=== PATIENT | female | born 1960 | race Caucasian/White ===

== ENCOUNTER → 2018-05-25 14:22 | Outpatient (CLI) | payer MEDICARE, SELFPAY ==
--- NOTE | 2018-05-25 | DI.MG.S_ITS ---
BILATERAL DIGITAL SCREENING MAMMOGRAM 3D/2D WITH CAD: 05/25/2018 CLINICAL: Routine screening. Comparison is made to exams dated: 05/02/2017 mammogram, 04/28/2016 mammogram, and 12/10/2014 mammogram - [facility]. There are scattered fibroglandular elements in both breasts. Current study was also evaluated with a Computer Aided Detection (CAD) system. No significant masses, calcifications, or other findings are seen in either breast. There has been no significant interval change. IMPRESSION: NEGATIVE There is no mammographic evidence of malignancy. A 1 year screening mammogram is recommended. This exam was interpreted at Station ID: [id number]. NOTE: For mammograms, a report in lay terms will be sent to the patient. Approximately 15% of breast malignancies will not be visualized mammographically. In the management of a palpable breast mass, a negative mammogram must not discourage biopsy of a clinically suspicious lesion. Electronically Signed By: Bartolo cooper/key:05/28/2018 20:19:05 letter sent: Normal Exam ACR BI-RADS Category 1: Negative [id number]
--- NOTE | 2018-05-25 | DI.RAD.S_ITS ---
PROCEDURE: XR LUMBAR SPINE 2-3V INDICATIONS: LOW BACK PAIN TECHNIQUE: 3 views of the lumbar spine were acquired. COMPARISON: MR, LUMBAR SPINE W/O CONTRAST, 11/14/2007, 12:59. FINDINGS: Bones: 5 [id number] vertebrae are present. There is normal bony alignment. No vertebral body compression fractures. No suspicious bony lesions. Multilevel disc degeneration, most notably in moderate at the L5-S1 level. Mild L4-L5 and L5-S1 facet joint arthropathy. Soft tissues: Overlying bowel gas pattern is normal. No suspicious soft tissue calcifications. Cholecystectomy clips. IMPRESSION: Degenerative disc and facet disease, most notably at the L5-S1 level. Dictated by: Latrell RICHEY Interpreted: Mk Thapa MD on 05/25/2018 at 14:43 Approved by: Mk Thapa M.D. on 05/25/2018 at 14:52
== END ==
PROVIDERS: Family Provider Family Medicine; PCP Family Medicine; Visit Provider Family Medicine
DX: Z12.31 Encounter for screening mammogram for malignant neoplasm of breast (principal); M54.5 Low back pain; M51.36 Other intervertebral disc degeneration, lumbar region; M51.37 Other intervertebral disc degeneration, lumbosacral region; M47.816 Spondylosis without myelopathy or radiculopathy, lumbar region; M47.817 Spondylosis without myelopathy or radiculopathy, lumbosacral region
CPT/HCPCS: 72100; 77063; 77067

== ENCOUNTER 2019-02-27 18:51 | Emergency (ER) | payer MEDICARE, SELFPAY ==
[2019-02-27 18:56] VITALS: BP 147/78; PULSE 62; RESP 18; TEMP 36.8; O2SAT 97; BMI 39.1
--- NOTE | 2019-02-27 19:25 | DI.US.S_ITS ---
PROCEDURE: US PERIPH VENOUS LOW EXTREM RT INDICATIONS: RIGHT LEG PAIN, EDEMA TECHNIQUE: Real-time imaging, as well as color and pulse Doppler interrogation, were performed of the lower extremity deep veins from the inguinal ligament to the popliteal fossa. COMPARISON: None. FINDINGS: The common femoral, femoral and popliteal veins are normally compressible, and free of intraluminal thrombus. Color and pulse Doppler demonstrate normal phasic intraluminal flow. There is normal augmentation response to distal compression maneuver. IMPRESSION: No evidence of DVT in visualized right lower extremity veins. Dictated by: Alonzo Lauren M.D. on 02/27/2019 at 19:46 Approved by: Alonzo Lauren M.D. on 02/27/2019 at 19:46
--- NOTE | 2019-02-27 19:44 | ED_ITS ---
HPI - Extremity Problem <Callie Cosby PA-C - Last Filed: 02/27/19 21:26> General Chief complaint: Extremity Problem,Nontraumatic Stated complaint: Sent by [facility] to rule out blood clot right leg Time Seen by Provider: 02/27/19 19:25 Source: patient Mode of arrival: ambulatory Limitations: no limitations History of Present Illness HPI Narrative: This 58-year-old female was sent by PCP office due to 4-5 day history of atypical right lower extremity pain and swelling. She indicates that she feels most of the pain around her lateral ankle and Achilles area up into the calf. She states that she was walking a lot, more than usual, prior to onset of the symptoms, but no specific trauma. She states she actually thinks swelling has improved a little bit since onset of symptoms. She does not have any history of DVT. She denies any chest pain or dyspnea. She denies any use of hormones. She is a nonsmoker. She denies any recent travel, surgery, or immobilization. She recently took penicillin, no other new medications. Related Data Home Medications Medication Instructions Recorded Confirmed Oxycodone/Acetaminophen (Percocet 2 tab PO PRN #0 08/04/08 5-325 MG Tablet) Allergies Allergy/AdvReac Type Severity Reaction Status Date / Time No Known Drug Allergies Allergy Verified 02/27/19 19:01 Review of Systems <Callie Cosby PA-C - Last Filed: 02/27/19 21:26> Review of Systems ROS Unobtainable: All systems reviewed & are unremarkable except as noted in HPI and below PFSH <Callie Cosby PA-C - Last Filed: 02/27/19 21:26> Medical History (Updated 02/27/19 @ 20:19 by Callie Cosby PA-C) Arthritis, multiple joint involvement (Chronic) Chronic musculoskeletal pain (Chronic) Diabetes mellitus type II, non insulin dependent (Chronic) Diabetic neuropathy (Chronic) Surgical History (Updated 02/27/19 @ 20:12 by Callie Cosby PA-C) Status post cervical spinal fusion (Resolved) Social History Smoking Status: Never smoker Social History Smoking Status: Never smoker Exam <Callie Cosby PA-C - Last Filed: 02/27/19 21:26> Narrative Exam Narrative: GENERAL APPEARANCE: Patient sitting comfortably, in no distress. LUNGS: Clear to auscultation bilaterally. HEART: Rate and rhythm regular without murmur, normal S1 and S2, no S3 or S4. EXTREMITIES: No cyanosis, moderate right pedal edema, more mild at the ankle, no proximal edema. Trace pedal edema on the left. DP and PT pulses 2+ MUSCULOSKELETAL: Left ankle mild tenderness inferior and posterior to the lateral malleolus and over the Achilles, which is intact by palpation. Minimal tenderness in the mid to distal calf. No tenderness elsewhere. Normal dorsiflexion and plantar flexion of the ankle with strength intact against resistance, nontender Initial Vital Signs Initial Vital Signs: Vital Signs Temperature 98.2 F 02/27/19 18:56 Pulse Rate 62 02/27/19 18:56 Respiratory Rate 18 02/27/19 18:56 Blood Pressure 147/78 H 02/27/19 18:56 Pulse Oximetry 97 02/27/19 18:56 <Shilpi Sinclair DO - Last Filed: 02/28/19 02:14> Initial Vital Signs Initial Vital Signs: Vital Signs Temperature 98.2 F 02/27/19 18:56 Pulse Rate 62 02/27/19 18:56 Respiratory Rate 18 02/27/19 18:56 Blood Pressure 147/78 H 02/27/19 18:56 Pulse Oximetry 97 02/27/19 18:56 Course <Callie Csoby PA-C - Last Filed: 02/27/19 21:26> Course Additional Information: Patient's symptoms and history are atypical for a DVT, she is not having any dyspnea or chest pain. No concerning vital signs. Ultrasound results were reviewed with patient. She left prior to receiving discharge instructions as she wanted to run some errands and catch the [place]. She did agree to follow up with her PCP in the next few days to reassess. Orders Ordered: ED Orders 02/27/19 19:25 perip venous low extrem rt Stat Vital Signs Vital signs: Vital Signs - 8 hr 02/27/19 18:56 Temperature 98.2 F Pulse Rate 62 Respiratory Rate 18 Blood Pressure 147/78 H Pulse Oximetry 97 <Shilpi Sinclair DO - Last Filed: 02/28/19 02:14> Orders Ordered: ED Orders 02/27/19 19:25 US periph venous low extrem rt Stat Vital Signs Vital signs: Vital Signs - 8 hr 02/27/19 18:56 Temperature 98.2 F Pulse Rate 62 Respiratory Rate 18 Blood Pressure 147/78 H Pulse Oximetry 97 MDM - Extremity (Nontraumatic) <Callie Cosby PA-C - Last Filed: 02/27/19 21:26> Imaging Data Venous US: Radiologist's impression: [place] [address] Ultrasound Report Signed Patient: Marie Trent [facility]#: [id number] : 9Acct:[id number] Age/Sex: 58 / FDate of Service: 02/27/19 Loc: ED Accession Number: [id number] Procedure: US perip venous low extrem rt Ordering Provider: Shilpi Sinclair D.O. PROCEDURE: US PERIPH VENOUS LOW EXTREM RT INDICATIONS: RIGHT LEG PAIN, EDEMA TECHNIQUE: Real-time imaging, as well as color and pulse Doppler interrogation, were performed of the lower extremity deep veins from the inguinal ligament to the popliteal fossa . COMPARISON: None. FINDINGS: The common femoral, femoral and popliteal veins are normally compressible, and free of intraluminal thrombus. Color and pulse Doppler demonstrate normal phasic intraluminal flow. There is normal augmentation response to distal compression maneuver. IMPRESSION: No evidence of DVT in visualized right lower extremity veins. Dictated by: Alonzo Lauren M.D. on 02/27/2019 at 19:46 Approved by: Alnozo Lauren M.D. on 02/27/2019 at 19:46 Discharge Plan Departure Patient Disposition: Home Clinical Impression: Pain and swelling of lower leg Qualifiers: Laterality: right Qualified Code(s): M79.661 - Pain in right lower leg Discharge Date/Time: 02/27/19 20:05 Instructions: DI for Leg Pain Prescriptions: No Action Oxycodone/Acetaminophen (Percocet 5-325 MG Tablet) 2 tab PO PRN Qty: 0 RF: 0 Referrals: James Stevens MD [Primary Care Provider] -
== END 2019-02-27 20:05 | disposition home or self-care (01) ==
PROVIDERS: Emergency Provider Internal Medicine; Family Provider Family Medicine; PCP Family Medicine
DX: M79.661 Pain in right lower leg (principal)
CPT/HCPCS: 93971; 99282; 99283

== ENCOUNTER → 2019-04-26 13:10 | Outpatient (CLI) | payer MEDICARE, SELFPAY ==
--- NOTE | 2019-04-26 | DI.MRI.S_ITS ---
PROCEDURE: MR CERVICAL SPINE WO CON INDICATIONS: Cervicalgia TECHNIQUE: Noncontrast sagittal T1 spin echo and T2 fast spin echo, sagittal STIR, foraminal oblique sagittal T2 fast spin echo, and axial gradient echo or T2 fast spin echo through the cervical spine. COMPARISON: [facility], MR, C-SPINE WITHOUT CONTRAST, 01/27/2015, 10:49. [facility], CT, C-SPINE WITH CONTRAST, 10/28/2016, 10:19. [facility], MR, C-SPINE WITHOUT CONTRAST, 06/22/2016, 10:55. FINDINGS: Image quality: Suboptimal due to ACDF from C4-C6. Alignment and Curvature: Straightening of the normal cervical lordosis. Bone Marrow: Where not obscured by hardware artifact the marrow demonstrates normal overall signal. Spinal Cord: Visualized spinal cord has normal size and signal. No cerebellar tonsillar herniation. Paraspinous Soft Tissues: No paravertebral masses. Prevertebral soft tissues are normal in thickness. C2-C3: Mild central canal narrowing. No foraminal stenosis. C3-C4: No definite canal stenosis. No foraminal narrowing. C4-C5: Mild central canal narrowing. No foraminal stenosis. C5-C6: Mild central canal narrowing. No definite foraminal stenosis. C6-C7: Moderate canal narrowing due in part to posterior facet disease and ligamentum flavum hypertrophy. Bilateral uncovertebral arthropathy and posterior intervening disc osteophyte complex. Moderate bilateral foraminal stenoses with nerve root compression. This appears slightly progressed since 01/27/15 bilaterally. C7-T1: Normal appearance. IMPRESSION: Postsurgical changes related to C4-C6 ACDF. Prominent discogenic change and facet arthropathy at the inferior unfused segment. Moderate C6-C7 canal stenosis. Moderate bilateral C6-C7 foraminal stenoses Straightening of the normal lordotic curvature. Dictated by: Mk Thapa M.D. on 04/26/2019 at 16:27 Approved by: Mk Thapa M.D. on 04/26/2019 at 16:38
== END ==
PROVIDERS: Family Provider Family Medicine; PCP Family Medicine; Visit Provider Family Medicine
DX: M54.2 Cervicalgia (principal); M47.812 Spondylosis without myelopathy or radiculopathy, cervical region; M48.02 Spinal stenosis, cervical region; R30.9 Painful micturition, unspecified; Z98.1 Arthrodesis status
CPT/HCPCS: 72141; 87086

== ENCOUNTER → 2019-05-22 14:05 | Outpatient (CLI) | payer MEDICARE, MEDICAID, SELFPAY ==
--- NOTE | 2019-05-22 14:42 | DI.MRI.S_ITS ---
PROCEDURE: MR LUMBAR SPINE WO CON INDICATIONS: SPINAL STENOSIS TECHNIQUE: Noncontrast sagittal T1 spin echo and T2 fast echo, sagittal STIR, axial T1 and T2 fast spin echo through the lumbar spine. In cases with scoliosis, additional coronal T2 fast spin echo may be performed. COMPARISON: [facility], MR, L-SPINE WITHOUT CONTRAST, 01/27/2015, 11:07. FINDINGS: Image quality: Excellent. Alignment and Curvature: There is normal bony alignment. Bone Marrow: Marrow is of normal overall signal. No acute vertebral body compression fractures. Spinal Cord: Conus medullaris terminates at the L1-L2 level. Visualized cord demonstrates normal signal and size. Paraspinous Soft Tissues: No paravertebral masses. T12-L1: No canal stenosis or foraminal stenosis. L1-L2: No canal stenosis. Bilateral facet hypertrophy. No foraminal stenosis. L2-L3: No canal stenosis. Bilateral facet and ligament hypertrophy. Mild right foraminal stenosis. L3-L4: Mild disc bulge. Bilateral facet and ligament hypertrophy. Mild canal stenosis. No foraminal stenosis. L4-L5: Definite interval progression. Disc bulge. Significantly progressed facet and ligament hypertrophy. Severe central canal stenosis. Mild right foraminal narrowing. Left foraminal disc protrusion which impinges on the left L4 nerve root far laterally. L5-S1: Diffuse mild posterior disc bulge with focal right paracentral disc protrusion which mildly posteriorly displaces the right S1 nerve root in the right lateral recess. There is mild to moderate central stenosis. Impressive bilateral facet hypertrophy. Moderate to severe bilateral foraminal narrowing with flattening deformity on the bilateral L5 nerve roots. IMPRESSION: 1. Significant interval progression at L4-L5. There is now severe canal stenosis. There is progression of findings in in the left foramen, where there is a left foraminal disc protrusion impinging on the left L4 nerve root far laterally. There is impressive facet arthropathy. 2. At L5-S1, a focal right paracentral disc protrusion mildly displaces the right S1 nerve root in the right lateral recess. There is mild to moderate central canal stenosis. There is impressive bilateral facet hypertrophy and moderate to severe bilateral foraminal narrowing. 3. Mild canal stenosis at L3-L4. Dictated by: Marcelino Zhang M.D. on 05/22/2019 at 16:12 Approved by: Marcelino Zhang M.D. on 05/22/2019 at 16:29
== END ==
PROVIDERS: Visit Provider Family Medicine
DX: M48.061 Spinal stenosis, lumbar region without neurogenic claudication (principal); M48.07 Spinal stenosis, lumbosacral region; M51.27 Other intervertebral disc displacement, lumbosacral region
CPT/HCPCS: 72148

== ENCOUNTER → 2020-05-22 10:51 | Outpatient (CLI) | payer MEDICARE, SELFPAY ==
--- NOTE | 2020-05-22 | DI.MG.S_ITS ---
BILATERAL DIGITAL SCREENING MAMMOGRAM 3D/2D WITH CAD: 05/22/2020 CLINICAL: Routine screening. Comparison is made to exam dated: 05/25/2018 [facility]. The tissue of both breasts is predominantly fatty. Current study was also evaluated with a Computer Aided Detection (CAD) system. No significant masses, calcifications, or other findings are seen in either breast. There has been no significant interval change. IMPRESSION: NEGATIVE There is no mammographic evidence of malignancy. A 1 year screening mammogram is recommended. This exam was interpreted at Station ID: [id number]. NOTE: For mammograms, a report in lay terms will be sent to the patient. Approximately 15% of breast malignancies will not be visualized mammographically. In the management of a palpable breast mass, a negative mammogram must not discourage biopsy of a clinically suspicious lesion. Electronically Signed By: Arleth rogers/key:05/22/2020 12:58:38 letter sent: Normal Exam ACR BI-RADS Category 1: Negative [id number]
== END ==
PROVIDERS: PCP Family Medicine; Referring Provider Family Medicine; Visit Provider Family Medicine
DX: Z12.31 Encounter for screening mammogram for malignant neoplasm of breast (principal)
CPT/HCPCS: 77063; 77067

== ENCOUNTER → 2020-06-08 15:45 | Outpatient (CLI) | payer MEDICARE, MEDICAID, SELFPAY ==
--- NOTE | 2020-06-08 | DI.MRI.S_ITS ---
PROCEDURE: MR HEAD/BRAIN WO/W CON INDICATIONS: symptoms and signs involving the musculoskeletal TECHNIQUE: Noncontrast axial T1 spin echo, axial T2 fast spin echo, sagittal and axial FLAIR, coronal T2 fast spin echo, axial gradient echo, axial diffusion and ADC through the brain. After the administration of contrast, axial and coronal T1 spin echo with fat saturation through the brain. COMPARISON: None. FINDINGS: Image quality: Diagnostic, with note made of motion artifact. CSF spaces: Basal cisterns are patent. No extra-axial fluid collections. Ventricles are normal in size and shape. Brain: No midline shift. No intracranial bleeds or masses. No abnormal intracranial enhancement. There is cerebral volume loss for age. There is periventricular white matter chronic small vessel ischemic change. The brainstem appears normal. Diffusion-weighted images demonstrate no acute ischemic insults. No chronic ischemic insults. Normal intravascular flow voids are present. Skull and face: Calvarial marrow is normal in signal. Orbits appear normal. Sinuses: Sinuses and mastoids appear clear. IMPRESSION: No significant intracranial abnormality can be seen for age. No findings of acute or subacute infarction can be seen. No masses or abnormal enhancement can be seen. Dictated by: Olivier Falcon M.D. on 06/08/2020 at 15:47 Approved by: Olivier Falcon M.D. on 06/08/2020 at 15:48
== END ==
PROVIDERS: PCP Family Medicine; Referring Provider Family Medicine; Visit Provider Family Medicine
DX: R29.898 Other symptoms and signs involving the musculoskeletal system (principal)
CPT/HCPCS: 70553

== ENCOUNTER 2020-09-13 10:23 | Emergency (ER) | payer MEDICARE, MEDICAID, SELFPAY ==
[2020-09-13] VITALS (12 sets, daily range): BP systolic 132–188; BP diastolic 64–90; PULSE 62–71; RESP 14–29; TEMP 37; O2SAT 92–99; BMI 42.3
--- NOTE | 2020-09-13 11:12 | ED.NAVMDI ---
HPI - Nausea/Vomiting/Diarrhea General Chief complaint: Nausea/Vomiting/Diarrhea Stated complaint: throwing up/ headache/ shortness of breath Time Seen by Provider: 09/13/20 11:12 Source: patient Mode of arrival: Family Vehicle Limitations: no limitations History of Present Illness HPI Narrative: This is a 60-year-old female comes to the emergency department with complaint of headache, nausea and vomiting, chest pain and shortness of breath, that began while she was riding the ferry from [facility] to [place]. Patient was on her way to drop her sister off at the airport. Patient states that while she was riding the very she acutely became nauseated and began having emesis. She then developed headache, some epigastric discomfort, her heart rate felt fast and then she developed some chest pain and shortness of breath. She states that the headache is still present. She is nauseated but not actively vomiting at this time. She still has some discomfort in her anterior chest. She denies any diarrhea but did have a hard stool while riding the [place]. She denies any urinary symptoms. No swelling in her extremities. No new weakness, numbness or tingling in her extremities. She denies any vertigo or dizziness. She states she does not have a history of motion sickness. She states she did have a sick contact from her 20-year-old grandson yesterday who had similar symptoms. She does have diabetes, chronic pain and takes Neurontin and pregabalin daily as well as oxycodone. She does take an aspirin daily for a remote history of TIA approximately 20 years prior. She has history of cholecystectomy. She does states she has been flown off the [place] several times for EKGs that ?look like a heart attack? but that her workups have always been negative. Denies tobacco, occasional alcohol, no illicit. She denies feeling ill prior to her travels. Related Data Home Medications Medication Instructions Recorded Confirmed Oxycodone/Acetaminophen (Percocet 2 tab PO PRN #0 08/04/08 07/30/20 5-325 MG Tablet) metformin 500 mg tablet 500 mg PO DAILY 04/26/19 07/30/20 Previous Rx's Medication Instructions Recorded estradiol 1 gram VAG 2XW #42.5 gram 03/17/20 mometasone 0.1 % topical ointment 1 applictn TOP 2XW #45 gram 03/17/20 ondansetron HCl [Zofran] 4 mg PO Q6H PRN #7 tab 09/13/20 Allergies Allergy/AdvReac Type Severity Reaction Status Date / Time No Known Drug Allergies Allergy Verified 09/13/20 10:52 Review of Systems Review of Systems ROS Unobtainable: All systems reviewed & are unremarkable except as noted in HPI and below Patient History Medical History (Updated 09/13/20 @ 14:11 by Taylor Mccain DO) Ankle pain Arthritis, multiple joint involvement Carpal tunnel syndrome Chronic musculoskeletal pain Diabetes mellitus type II, non insulin dependent Diabetic neuropathy Fibromyalgia Foot pain Ovarian cyst Shoulder pain Sleep apnea Transient ischemic attack Surgical History Anesthesia History of carpal tunnel release (~2015) History of delivery History of cholecystectomy History of knee surgery History of tissue graft Status post cervical spinal fusion Family History Father History of heart disease Mother Brain aneurysm Grandfather Cancer Grandfather Stroke Grandmother No problems noted. Family/Other Sleep apnea Insomnia Restless leg Obesity Hypertension Diabetes mellitus Depression Anxiety Social History Smoking Status: Never smoker Smoking Status: Never smoker alcohol intake frequency: a few times a week Substance Use Type: does not use Exam Narrative Exam Narrative: GEN: Obese female, alert and oriented x 3, patient appears to be in mild distress. HEENT: Atraumatic, pupils are equal round reactive to light, extraocular movements are intact, nares are clear. Left TM is clear, right TM does show small amount of fluid, there is no erythema, there is mild bulge but no loss of light reflex of the tympanic membrane. HEART: Regular rate and rhythm without murmur, clicks, rubs. LUNGS:Lungs clear to auscultation, no wheezes, rales, crackles, chest moves symmetrically ABD:bowel sounds normal, soft, non-tender, no guarding, rebound, rigidity, no masses noted, no hepatosplenomegaly :No CVA tenderness MSCL: Non-tender, no muscle atrophy, muscles strength 5/5 upper and lower extremities, full range of motion NEURO:CN 2-12 intact, sensation normal SKIN: No rashes, no erythema or other skin changes noted. Initial Vital Signs Initial Vital Signs: Vital Signs Pulse Rate 71 09/13/20 10:52 Pulse Oximetry 92 09/13/20 10:52 Course Orders Ordered: ED Orders 09/13/20 11:15 EKG-12 Lead Stat 09/13/20 11:19 COVID19 Stat 09/13/20 11:29 Complete Blood Count AUTO DIFF Stat Comprehensive Metabolic Panel Stat Lipase Stat Partial Thromboplastin Time Stat Prothrombin Time INR Stat Troponin & CK Cardiac Panel Stat 09/13/20 11:33 XR acute abdomen series Stat 09/13/20 13:37 Trop I [Troponin I] Stat Discontinued Medications Sodium Chloride (Normal Saline 0.9%) 500 mls @ 1,000 mls/hr IV BOLUS ONE Stop: 09/13/20 11:59 Last Infusion: 09/13/20 13:10 Dose: 0 mls/hr Documented by: Admin: 09/13/20 11:36 Dose: 1,000 mls/hr Documented by: JOELLE Ondansetron HCl (Ondansetron 4 Mg/2 Ml Inj) 4 mg IV NOW ONE Stop: 09/13/20 11:31 Last Admin: 09/13/20 11:36 Dose: 4 mg Documented by: JOELLE Ondansetron HCl (Ondansetron 4 Mg/2 Ml Inj) 4 mg IV NOW ONE Stop: 09/13/20 13:27 Last Admin: 09/13/20 13:29 Dose: 4 mg Documented by: JOELLE Vital Signs Vital signs: Vital Signs - 8 hr 09/13/20 10:52 09/13/20 10:54 09/13/20 11:00 Temperature 98.6 F Pulse Rate 71 70 65 Respiratory Rate 21 15 Blood Pressure 158/86 H Pulse Oximetry 92 99 97 09/13/20 11:05 09/13/20 11:30 09/13/20 11:31 Temperature Pulse Rate 68 68 67 Respiratory Rate 26 H 29 H Blood Pressure 176/90 H 188/75 H Pulse Oximetry 99 97 99 09/13/20 12:00 09/13/20 12:25 09/13/20 12:30 Temperature Pulse Rate 71 65 62 Respiratory Rate 17 21 14 Blood Pressure 154/74 H 153/67 H Pulse Oximetry 95 98 97 09/13/20 13:00 09/13/20 13:30 09/13/20 13:31 Temperature Pulse Rate 63 65 66 Respiratory Rate 14 19 16 Blood Pressure 144/67 H 132/64 Pulse Oximetry 99 98 98 MDM - Nausea/Vomiting/Diarrhea Lab Data Attestation: I reviewed the patient's lab results. Result diagrams: 09/13/20 11:29 09/13/20 11:29 Labs: Lab Results 09/13/20 09/13/20 09/13/20 Range/Units 11:19 11:29 11:29 WBC 5.7 (4.5-11.0) X10^3/uL RBC 4.03 (4.0-5.2) X10^6/uL Hgb 11.7 L (12.0-16.0) g/dL Hct 35.4 L (36-46) % MCV 87.9 (80-100) fL MCH 29.0 (26-34) PG MCHC 33.0 (30-36) % RDW 14.4 (11.6-14.8) % Plt Count 249 (150-400) X10^3/uL Neut % (Auto) 60.6 (50-75) % Lymph % (Auto) 23.6 L (25-40) % [place] % (Auto) 9.9 (3-14) % Eos % (Auto) 4.7 H (2-4) % Baso % (Auto) 1.2 (0-2) % Neut # (Auto) 3500 (5460-2248) /uL Lymph # (Auto) 1300 (0587-0327) /uL [place] # (Auto) 600 (0-900) /uL Eos # (Auto) 300 (0-450) /uL Baso # (Auto) 100 (0-100) /uL PT 11.0 (10.1-12.7) SECONDS INR 1.0 (0.9-1.3) APTT 34 (26.4-36.2) SECONDS Sodium (137-145) mmol/L Potassium (3.4-5.1) mmol/L Chloride (98-107) mmol/L Carbon Dioxide (22-32) mmol/L BUN (7-17) mg/dL Creatinine (0.52-1.04) mg/dL Estimated GFR (>60) mL/min BUN/Creatinine Ratio (6-22) Glucose (80-110) mg/dL Calcium (8.4-10.2) mg/dL Total Bilirubin (0.2-1.3) mg/dL AST (14-36) IU/L ALT (<35) IU/L Alkaline Phosphatase (38-126) U/L Total Creatine Kinase (30-135) U/L CK-MB (CK-2) (<2.37) ng/mL CK-MB (CK-2) Rel Index (1.5-5.0) % Troponin I (0.01-0.034) ng/mL Total Protein (6.3-8.2) g/dL Albumin (3.5-5.0) g/dL Globulin (1.7-4.1) g/dL Albumin/Globulin Ratio (1.0-2.8) Lipase (23-300) U/L SARS-CoV-2 (PCR) Negative (Negative) 09/13/20 09/13/20 09/13/20 Range/Units 11:29 11:29 13:37 WBC (4.5-11.0) X10^3/uL RBC (4.0-5.2) X10^6/uL Hgb (12.0-16.0) g/dL Hct (36-46) % MCV (80-100) fL MCH (26-34) PG MCHC (30-36) % RDW (11.6-14.8) % Plt Count (150-400) X10^3/uL Neut % (Auto) (50-75) % Lymph % (Auto) (25-40) % [place] % (Auto) (3-14) % Eos % (Auto) (2-4) % Baso % (Auto) (0-2) % Neut # (Auto) (3729-6126) /uL Lymph # (Auto) (4803-6575) /uL [place] # (Auto) (0-900) /uL Eos # (Auto) (0-450) /uL Baso # (Auto) (0-100) /uL PT (10.1-12.7) SECONDS INR (0.9-1.3) APTT (26.4-36.2) SECONDS Sodium 138 (137-145) mmol/L Potassium 5.1 (3.4-5.1) mmol/L Chloride 105 (98-107) mmol/L Carbon Dioxide 27 (22-32) mmol/L BUN 29 H (7-17) mg/dL Creatinine 1.19 H (0.52-1.04) mg/dL Estimated GFR 46.0 L (>60) mL/min BUN/Creatinine Ratio 24.4 H (6-22) Glucose 126 H (80-110) mg/dL Calcium 9.7 (8.4-10.2) mg/dL Total Bilirubin 0.3 (0.2-1.3) mg/dL AST 51 H (14-36) IU/L ALT 36 H (<35) IU/L Alkaline Phosphatase 56 (38-126) U/L Total Creatine Kinase 232 H (30-135) U/L CK-MB (CK-2) 3.44 H (<2.37) ng/mL CK-MB (CK-2) Rel Index 1.5 (1.5-5.0) % Troponin I < 0.012 < 0.012 (0.01-0.034) ng/mL Total Protein 7.9 (6.3-8.2) g/dL Albumin 4.6 (3.5-5.0) g/dL Globulin 3.3 (1.7-4.1) g/dL Albumin/Globulin Ratio 1.4 (1.0-2.8) Lipase 81 (23-300) U/L SARS-CoV-2 (PCR) (Negative) Urine Dip Bedside Urine Glucose Negative Bedside Urine Bilirubin - Negative Bedside Urine Ketone - Negative Urine Specific [place] 1.025 Bedside Urine Occult Blood - Negative Bedside Urine pH 5.5 Bedside Urine Protein - Negative Bedside Urine Urobilinogen - Negative Bedside Urine Nitrite - Negative Bedside Urine Leukocytes - Negative Esterase Imaging Data Abdominal x-ray: Radiologist's Impression: [address] [id number] ReportSigned Patient: Marie Trent [facility]#: [id number]: 9Acct:[id number]/Sex: 60 / FDate of Service: 09/13/20Loc: EDAccession Number: [id number] Procedure: XR acute abdomen series Ordering Provider: Taylor Mccain D.O. PROCEDURE: XR ACUTE ABDOMEN SERIES INDICATIONS: n/v, cp, sob TECHNIQUE: One view chest and two views of the abdomen were acquired. COMPARISON: None. FINDINGS: Surgical changes and devices: Cholecystectomy clips.. Chest: Lungs are clear. Heart size is normal. No pleural effusions. No pneumoperitoneum. Abdomen: Nonspecific bowel gas pattern. No abnormally dilated loops of bowel are identified. There are air-fluid levels in the small bowel. No suspicious calcifications. Visualized solid organ contours appear normal. Bones: No suspicious bony lesions. IMPRESSION: Nonspecific bowel gas pattern. Nondilated bowel with air-fluid levels. Consider gastroenteritis. Dictated by: Marcelino Zhang M.D. on 09/13/2020 at 11:23 Approved by: Marcelino Zhang M.D. on 09/13/2020 at 11:25 ECG Data Attestation: I personally reviewed and interpreted this ECG as follows: Interpretation: Sinus rhythm rate of 66 RI 168 QRS is 92 and QTC of 427. Nonspecific change. Patient may have some artifact from motion in leads 1 and 2. Patient has similar appearing segments on prior EKGs, particularly 11/26/14. EKG number shows sinus rhythm rate of 65 P are interval 168 QRS of 90 and QTC of 436. Patient has fairly similar EKG changes with no new ST segment changes noted today. MDM Narrative Medical decision making narrative: This is a 60-year-old female who comes in with complaint of initial onset of nausea and vomiting followed by headache, epigastric pain and some chest pain shortness of breath. Patient continues to feel nauseated here in the department. 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 Her labs, EKG and imaging do not show any acute changes. She did have a sick contact yesterday with similar symptoms and this may be the cause of her symptoms today. Patient did note prior to leaving that her right ear has felt full, she has a small amount of fluid but no signs of infection. She did not describe any vertigo symptoms and did not they state that she thought she was having any motion sickness so this is unlikely cause of her symptoms but we did discuss trying a short course of antihistamines to allow her eustachian tube to drain the inner ear. We did discuss that watchful waiting and close follow-up would be appropriate. If she has not had improvement of symptoms in 24-48 hours she should have a recheck. Patient expresses understanding, and request discharge so she can catch her [place] back to [facility]. Discharge Plan Departure Patient Disposition: Home Clinical Impression: Vomiting Instructions: DI for Vomiting -- Adult Activity Restrictions/Additional Instructions: Follow up with your physician in the next 1-2 days for recheck if you continue to have symptoms. Take zofran 1 tablet every 6 hours as needed for nausea/vomiting. You may continue home medications as prescribed. You may take an antihistamine such as Benadryl or an [id number] Claritin/loratadine. There is a small amount of fluid on your right ear, this is a possible although unlikely cause for all of her symptoms today. Taking antihistamines will help your eustachian tube drain the fluid behind her ear down. Return to the ER for fevers greater 100.4 on height, passing out, new or worsening chest pain or shortness of breath, persistent vomiting, black or bloody stools, decrease in urine output or if you are not urinating, new swelling in your extremities or other new or concerning symptoms. Prescriptions: New ondansetron HCl [Zofran] 4 mg tablet 4 mg PO Q6H PRN (Reason: nausea and vomiting) Qty: 7 RF: 0 No Action Oxycodone/Acetaminophen (Percocet 5-325 MG Tablet) 2 tab PO PRN Qty: 0 RF: 0 estradiol 0.01 % (0.1 mg/gram) cream 1 gram VAG 2XW Qty: 42.5 RF: 1 mometasone 0.1 % ointment 1 applictn TOP 2XW Qty: 45 RF: 1 metformin 500 mg tablet 500 mg PO DAILY RF: 0 Referrals: James Stevens MD [Primary Care Provider] -
--- NOTE | 2020-09-13 11:19 | PC.NURSE ---
patient has a history of T2DM and is currently controlled with metformin. She also states a history of muscle aches and pain frequently and it taking gabapentin for that. She states that she was spending time with her sick child relative yesterday but did not know what he was sick with. [place] and started getting nauseated and vomiting 4 times this morning.
--- NOTE | 2020-09-13 11:33 | DI.RAD.S_ITS ---
PROCEDURE: XR ACUTE ABDOMEN SERIES INDICATIONS: n/v, cp, sob TECHNIQUE: One view chest and two views of the abdomen were acquired. COMPARISON: None. FINDINGS: Surgical changes and devices: Cholecystectomy clips.. Chest: Lungs are clear. Heart size is normal. No pleural effusions. No pneumoperitoneum. Abdomen: Nonspecific bowel gas pattern. No abnormally dilated loops of bowel are identified. There are air-fluid levels in the small bowel. No suspicious calcifications. Visualized solid organ contours appear normal. Bones: No suspicious bony lesions. IMPRESSION: Nonspecific bowel gas pattern. Nondilated bowel with air-fluid levels. Consider gastroenteritis. Dictated by: Marcelino Zhang M.D. on 09/13/2020 at 11:23 Approved by: Marcelino Zhang M.D. on 09/13/2020 at 11:25
[2020-09-13] MEDS: SODIUM CHLORIDE 0.9% 500 ML 1000 ML IV (11:36)
[2020-09-13] MEDS: ONDANSETRON 4 MG/2 ML INJ IV ×2 (11:36→13:29)
[2020-09-13 11:37] LABS: Add Manual Diff / Slide Review NO; Basophils Absolute Auto 100 /uL (0-100); Basophils Percent Auto 1.2 % (0-2); Eosinophils Absolute Auto 300 /uL (0-450); Eosinophils Percent Auto 4.7 % (2-4); Hematocrit 35.4 % (36-46); Hemoglobin 11.7 g/dL (12.0-16.0); Lymphocytes Absolute Auto 1300 /uL (1100-4500); Lymphocytes Percent Auto 23.6 % (25-40); Mean Corpuscular Volume 87.9 fL (80-100); Monocytes Absolute Auto 600 /uL (0-900); Monocytes Percent Auto 9.9 % (3-14); Neutrophils Absolute Auto 3500 /uL (1500-7000); Neutrophils Percent Auto 60.6 % (50-75); Platelet Count 249 X10^3/uL (150-400); Red Blood Cell Count 4.03 X10^6/uL (4.0-5.2); Red Cell Distribution Width 14.4 % (11.6-14.8); White Blood Cell Count 5.7 X10^3/uL (4.5-11.0)
[2020-09-13 11:47] LABS: COVID19 -Nasal RAPID Negative (Negative)
[2020-09-13 11:53] LABS: Alanine Aminotransferase 36 IU/L (<35); Albumin 4.6 g/dL (3.5-5.0); Albumin Globulin Ratio 1.4 (1.0-2.8); Alkaline Phosphatase 56 U/L (38-126); Aspartate Aminotransferase 51 IU/L (14-36); BUN Creatinine Ratio 24.4 (6-22); Bilirubin Total 0.3 mg/dL (0.2-1.3); Blood Urea Nitrogen 29 mg/dL (7-17); Calcium 9.7 mg/dL (8.4-10.2); Carbon Dioxide 27 mmol/L (22-32); Chloride 105 mmol/L (98-107); Creatine Kinase 232 U/L (30-135); Globulin 3.3 g/dL (1.7-4.1); Glucose 126 mg/dL (80-110); HEMOLYSIS 16 (0-50); Lipase 81 U/L (23-300); Potassium 5.1 mmol/L (3.4-5.1); Sodium 138 mmol/L (137-145); Total Protein 7.9 g/dL (6.3-8.2)
[2020-09-13 12:04] LABS: Troponin I < 0.012 ng/mL (0.01-0.034)
[2020-09-13 12:08] LABS: CKMB % Relative Index 1.5 % (1.5-5.0); Creatine Kinase MB 3.44 ng/mL (<2.37)
[2020-09-13 12:18] LABS: PTT Partial Thromboplastin Tim 34 SECONDS (26.4-36.2)
[2020-09-13 14:07] LABS: Troponin I < 0.012 ng/mL (0.01-0.034)
== END 2020-09-13 14:32 | disposition home or self-care (01) ==
PROVIDERS: Emergency Provider Emergency Medicine; PCP Family Medicine
DX: R11.2 Nausea with vomiting, unspecified (principal); R06.02 Shortness of breath; R51.9 Headache, unspecified; R10.13 Epigastric pain; Z20.822 Contact with and (suspected) exposure to COVID-19
CPT/HCPCS: 36415; 74022; 80053; 81003; 82550; 82553; 83690; 84484; 85025; 85610; 85730; 87635; 93005; 96361; 96374; 96376; 99281; 99284; C9803; J2405

== ENCOUNTER → 2020-12-30 12:08 | Outpatient (CLI) | payer MEDICARE, SELFPAY ==
[2020-12-30 20:59] LABS: Hemoglobin A1C% w Est Avg Glu 6.8 % (4.0-6.0)
[2020-12-30 21:02] LABS: Alanine Aminotransferase 29 IU/L (<35); Albumin 4.2 g/dL (3.5-5.0); Albumin Globulin Ratio 1.3 (1.0-2.8); Alkaline Phosphatase 50 U/L (38-126); Aspartate Aminotransferase 38 IU/L (14-36); BUN Creatinine Ratio 21.1 (6-22); Bilirubin Total 0.5 mg/dL (0.2-1.3); Blood Urea Nitrogen 23 mg/dL (7-17); Calcium 9.5 mg/dL (8.4-10.2); Carbon Dioxide 27 mmol/L (22-32); Chloride 107 mmol/L (98-107); Cholesterol 204 mg/dL (140-199); Estimated Glomerular Filt Rate 50.9 mL/min (>60); Globulin 3.2 g/dL (1.7-4.1); Glucose 110 mg/dL (80-110); HDL Cholesterol 67 mg/dL (40-60); HEMOLYSIS < 15 (0-50); LDL Cholesterol Calculated 111 mg/dL (<100); Potassium 4.6 mmol/L (3.4-5.1); Sodium 141 mmol/L (137-145); Total Protein 7.4 g/dL (6.3-8.2); Triglycerides 131 mg/dL (35-150)
[2020-12-30 21:31] LABS: TSH w/ Reflex to FT4 1.72 uIU/mL (0.47-4.68)
== END ==
PROVIDERS: PCP Family Medicine; Visit Provider Family Medicine
DX: E11.9 Type 2 diabetes mellitus without complications (principal); G89.29 Other chronic pain; M79.18 Myalgia, other site; N28.9 Disorder of kidney and ureter, unspecified
CPT/HCPCS: 80053; 80061; 83036; 84443

== ENCOUNTER → 2021-03-04 10:43 | Outpatient (CLI) | payer MEDICARE, SELFPAY ==
[2021-03-04 19:09] LABS: Alanine Aminotransferase 19 IU/L (<35); Albumin 4.5 g/dL (3.5-5.0); Albumin Globulin Ratio 1.4 (1.0-2.8); Alkaline Phosphatase 55 U/L (38-126); Aspartate Aminotransferase 30 IU/L (14-36); BUN Creatinine Ratio 21.2 (6-22); Bilirubin Total 0.5 mg/dL (0.2-1.3); Blood Urea Nitrogen 21 mg/dL (7-17); Calcium 9.6 mg/dL (8.4-10.2); Carbon Dioxide 28 mmol/L (22-32); Chloride 103 mmol/L (98-107); Estimated Glomerular Filt Rate 56.8 mL/min (>60); Globulin 3.2 g/dL (1.7-4.1); Glucose 109 mg/dL (80-110); HEMOLYSIS < 15 (0-50); Potassium 4.8 mmol/L (3.4-5.1); Sodium 140 mmol/L (137-145); Total Protein 7.7 g/dL (6.3-8.2)
[2021-03-04 19:26] LABS: Free T4, Direct Thyroxine 0.93 ng/dL (0.78-2.19)
[2021-03-04 19:40] LABS: Thyroid Stimulating Hormone 2.69 uIU/mL (0.47-4.68)
== END ==
PROVIDERS: PCP Family Medicine; Visit Provider Family Medicine
DX: E11.40 Type 2 diabetes mellitus with diabetic neuropathy, unspecified; M79.7 Fibromyalgia; N28.9 Disorder of kidney and ureter, unspecified; R53.83 Other fatigue; E11.9 Type 2 diabetes mellitus without complications
CPT/HCPCS: 80053; 83036; 84439; 84443

== ENCOUNTER → 2021-04-12 14:18 | Outpatient (CLI) | payer MEDICARE, MEDICAID, SELFPAY ==
--- NOTE | 2021-04-12 14:20 | DI.ECHO.S_ITS ---
[facility] +---------+ : : [address] [place] : : : : [id number] : : : : Phone: [phone] Echocardiogram Report + + :Name: NASRA WANG Study Date: 04/12/2021 Height: 67 in : :[facility] ReadingLocation: Weight: 275 lb : : Gender: Female BSA: 2.3 m2 : :: 1960 Age: 60 yrs BP: 136/78 mmHg: :Reason For Study: Progressive exertional fatigue : : Performed By: JESUS LAMB : :Referring: JESSICA MYERS : + + Interpretation Summary Technically difficult study limiting valve visualization. 1) Normal left ventricular thickness, size, wall motion, and systolic function (EF 55-60%). 2) Grossly, normal right ventricular size with mildly reduced function. 3) No significant valvular abnormalities based on doppler assessment. 4) No prior Echo available for comparison. Procedure: A two-dimensional transthoracic echocardiogram with color flow and Doppler was performed. The study quality was technically difficult. Images from the parasternal window were difficult to obtain and are suboptimal in quality. The apical views were difficult to obtain and are suboptimal in quality. There is no prior echocardiogram noted for this patient. A contrast injection of Definity was performed to improve assessment of LV function. The patient was in normal sinus rhythm during the exam. Left Ventricle: The left ventricle is normal in size and wall thickness. Left ventricular systolic function appears normal without focal wall motion abnormalities. The ejection fraction is estimated to be 55-60%. Right Ventricle: The right ventricle is grossly normal size. Right ventricular systolic function is mildly reduced. Atria: The left atrium is not well visualized. Right atrium not well visualized. There is no Doppler evidence for an interatrial shunt. Mitral Valve: The mitral valve is normal. Aortic Valve: The aortic valve is trileaflet. The aortic valve opens well. There is no aortic valve stenosis. No aortic regurgitation is present. Tricuspid Valve: The tricuspid valve is normal. There is a trace or physiologic amount of tricuspid regurgitation. Pulmonary artery pressures cannot be estimated because of the lack of a measurable TR jet velocity but the IVC suggests a CVP of around 3 mmHg. Pulmonic Valve: The pulmonic valve is not well seen, but is grossly normal. Great Vessels: The aortic root is normal size. The ascending aorta could not be visualized. The aortic arch is normal in size. The IVC is of normal diameter and collapses greater than 50% with a sniff. This suggests a low right atrial pressure of 3 mm Hg. Pericardium/ Pleura There is no pericardial effusion. There is an anterior echo-free space consistent with a fat pad. There is no pleural effusion. MMode/2D Measurements & Calculations LVIDd: 4.9 cm LVOT diam: 2.3 cm LVIDs: 3.3 cm Ao root diam: 3.0 cm FS: 34.0 % Ao Arch Diam (Prox Trans): 2.3 cm IVSd: 0.91 cm LVPWd: 0.98 cm LV morillo. diameter/BSA (cm/m^2): 2.1 LV sys. diameter/BSA (cm/m^2): 1.4 RVD1 (basal): 3.4 cm TAPSE: 2.4 cm Doppler Measurements & Calculations Ao V2 max: 151.9 cm/sec LVOT Max Dexetr: 88.9 cm/sec Ao V2 mean: 102.7 cm/sec LV V1 max P.2 mmHg Ao max P.2 mmHg LV V1 VTI: 17.4 cm Ao mean P.7 mmHg IVETT(I,D): 2.3 cm2 Ao V2 VTI: 29.6 cm IVETT(V,D): 2.3 cm2 sev ratio: 0.59 IVETT indexed to BSA (cm^2/m^2): 1.0 MV E max dexter: 64.0 cm/sec PA V2 max: 83.9 cm/sec MV A max dexter: 78.8 cm/sec PA V2 mean: 59.9 cm/sec MV E/A: 0.81 PA mean P.5 mmHg Med Peak E' Dexter: 6.5 cm/sec E/E' med: 9.8 Lat Peak E' Dexter: 5.1 cm/sec E/E' lat: 12.7 E/e' average: 11.2 MV dec time: 0.17 sec SV(LVOT): 69.5 ml Reading Physician:05:01 PM
== END ==
PROVIDERS: PCP Family Medicine; Referring Provider Family Medicine; Visit Provider Family Medicine
DX: R53.83 Other fatigue (principal)
CPT/HCPCS: C8929; Q9957

== ENCOUNTER → 2021-04-22 13:40 | Outpatient (CLI) | payer MEDICARE, SELFPAY ==
[2021-04-22 19:18] LABS: C-Reactive Protein Quant 1.1 mg/dL (<1.0)
[2021-04-22 20:15] LABS: Erythrocyte Sedimentation Rate 21 MM/HR (0-20)
== END ==
PROVIDERS: PCP Family Medicine; Visit Provider Physician Assistant Medical
DX: M79.673 Pain in unspecified foot (principal); S91.309A Unspecified open wound, unspecified foot, initial encounter
CPT/HCPCS: 85651; 86140

== ENCOUNTER → 2021-04-28 13:06 | Outpatient (CLI) | payer MEDICARE, SELFPAY ==
[2021-04-28 18:39] LABS: Add Manual Diff / Slide Review NO; Basophils Absolute Auto 100 /uL (0-100); Basophils Percent Auto 1.1 % (0-2); Eosinophils Absolute Auto 300 /uL (0-450); Eosinophils Percent Auto 3.5 % (2-4); Hematocrit 39.1 % (36-46); Hemoglobin 12.9 g/dL (12.0-16.0); Lymphocytes Absolute Auto 3300 /uL (1100-4500); Lymphocytes Percent Auto 38.3 % (25-40); Mean Corpuscular HGB Conc 32.9 % (30-36); Mean Corpuscular Hemoglobin 28.5 PG (26-34); Mean Corpuscular Volume 86.7 fL (80-100); Monocytes Absolute Auto 700 /uL (0-900); Monocytes Percent Auto 8.2 % (3-14); Neutrophils Absolute Auto 4200 /uL (1500-7000); Neutrophils Percent Auto 48.9 % (50-75); Platelet Count 291 X10^3/uL (150-400); Red Blood Cell Count 4.51 X10^6/uL (4.0-5.2); Red Cell Distribution Width 13.8 % (11.6-14.8); White Blood Cell Count 8.5 X10^3/uL (4.5-11.0)
[2021-04-28 19:38] LABS: Erythrocyte Sedimentation Rate 20 MM/HR (0-20)
== END ==
PROVIDERS: PCP Family Medicine; Visit Provider Physician Assistant Medical
DX: E11.9 Type 2 diabetes mellitus without complications (principal); S91.309A Unspecified open wound, unspecified foot, initial encounter; S92.355D Nondisplaced fracture of fifth metatarsal bone, left foot, subsequent encounter for fracture with routine healing
CPT/HCPCS: 85025; 85651; 86140

== ENCOUNTER → 2021-06-08 11:11 | Outpatient (CLI) | payer MEDICARE, MEDICAID, SELFPAY ==
[2021-06-09 18:07] LABS: Candida species Positive (Negative); Gardnerella vaginalis Negative (Negative); Trichomoas vaginalis Negative (Negative)
== END ==
PROVIDERS: PCP Family Medicine; Visit Provider Obstetrics & Gynecology
DX: R30.0 Dysuria (principal); N89.8 Other specified noninflammatory disorders of vagina
CPT/HCPCS: 87070; 87077; 87086; 87205; 87480; 87510; 87660

== ENCOUNTER → 2021-06-18 12:20 | Outpatient (CLI) | payer MEDICARE, MEDICAID, SELFPAY ==
[2021-06-18 19:01] LABS: Alanine Aminotransferase 23 IU/L (<35); Albumin 4.5 g/dL (3.5-5.0); Albumin Globulin Ratio 1.4 (1.0-2.8); Alkaline Phosphatase 50 U/L (38-126); Aspartate Aminotransferase 32 IU/L (14-36); BUN Creatinine Ratio 23.7 (6-22); Bilirubin Total 0.6 mg/dL (0.2-1.3); Blood Urea Nitrogen 23 mg/dL (7-17); C-Reactive Protein Quant 1.5 mg/dL (<1.0); Calcium 9.7 mg/dL (8.4-10.2); Carbon Dioxide 32 mmol/L (22-32); Chloride 102 mmol/L (98-107); Estimated Glomerular Filt Rate 58.2 mL/min (>60); Globulin 3.2 g/dL (1.7-4.1); Glucose 116 mg/dL (80-110); HEMOLYSIS < 15 (0-50); Potassium 4.5 mmol/L (3.4-5.1); Sodium 140 mmol/L (137-145); Total Protein 7.7 g/dL (6.3-8.2)
[2021-06-18 19:48] LABS: Erythrocyte Sedimentation Rate 23 MM/HR (0-20)
== END ==
PROVIDERS: PCP Family Medicine; Visit Provider Physician Assistant Medical
DX: E11.9 Type 2 diabetes mellitus without complications (principal); R53.82 Chronic fatigue, unspecified; N28.9 Disorder of kidney and ureter, unspecified; H53.9 Unspecified visual disturbance
CPT/HCPCS: 80053; 83036; 84443; 85651; 86140

== ENCOUNTER 2021-07-07 14:25 | Emergency (ER) | payer MEDICARE, MEDICAID, SELFPAY | END 2021-07-07 18:33 | disposition left against medical advice (07) | PROVIDERS: Emergency Provider Emergency Medicine; PCP Family Medicine | DX: Z53.21 Procedure and treatment not carried out due to patient leaving prior to being seen by health care provider (principal) ==

== ENCOUNTER → 2021-07-07 14:33 | Outpatient (CLI) | payer MEDICARE, MEDICAID, SELFPAY ==
--- NOTE | 2021-07-07 14:37 | DI.MRI.S_ITS ---
PROCEDURE: MR HEAD/BRAIN WO/W CON INDICATIONS: on and off dizziness, VAZQUEZ and visual changes x 2 weeks TECHNIQUE: Noncontrast axial T1 spin echo, axial T2 fast spin echo, sagittal and axial FLAIR, coronal T2 fast spin echo, axial gradient echo, axial diffusion and ADC through the brain. After the administration of contrast, axial and coronal T1 spin echo with fat saturation through the brain. COMPARISON: [facility], , MR HEAD/BRAIN WO/W CON, 06/08/2020, 15:48. FINDINGS: Image quality: Excellent. CSF spaces: Basal cisterns are patent. No extra-axial fluid collections. Ventricles are normal in size and shape. Brain: No midline shift. No intracranial bleeds or masses. No abnormal intracranial enhancement. There is cerebral volume loss for age. There is periventricular white matter chronic small vessel ischemic change. The brainstem appears normal. Diffusion-weighted images demonstrate no acute ischemic insults. No chronic ischemic insults. Normal intravascular flow voids are present. Skull and face: Calvarial marrow is normal in signal. Orbits appear normal. Sinuses: Sinuses and mastoids appear clear. IMPRESSION: No findings of acute or subacute infarction can be seen. No imaging explanation is found for this patient's presenting symptoms. No masses or abnormal enhancement can be seen. Note is made of age-appropriate brain parenchymal volume loss and chronic small vessel ischemic changes. Dictated by: Olivier Falcon M.D. on 07/07/2021 at 15:30 Approved by: Olivier Falcon M.D. on 07/07/2021 at 15:31
== END ==
PROVIDERS: PCP Family Medicine; Referring Provider Family Medicine; Visit Provider Family Medicine
DX: R51.9 Headache, unspecified (principal); H53.9 Unspecified visual disturbance; R53.82 Chronic fatigue, unspecified; N28.9 Disorder of kidney and ureter, unspecified
CPT/HCPCS: 70553; 99281; A9579

== ENCOUNTER → 2021-09-02 12:16 | Outpatient (CLI) | payer MEDICARE, MEDICAID, SELFPAY ==
[2021-09-02 20:29] LABS: Add Manual Diff / Slide Review NO; Basophils Absolute Auto 100 /uL (0-100); Basophils Percent Auto 1.2 % (0-2); Eosinophils Absolute Auto 300 /uL (0-450); Eosinophils Percent Auto 5.3 % (2-4); Hematocrit 36.7 % (36-46); Hemoglobin 11.9 g/dL (12.0-16.0); Lymphocytes Absolute Auto 2500 /uL (1100-4500); Mean Corpuscular HGB Conc 32.4 % (30-36); Mean Corpuscular Hemoglobin 28.1 PG (26-34); Mean Corpuscular Volume 86.8 fL (80-100); Monocytes Absolute Auto 600 /uL (0-900); Neutrophils Absolute Auto 2700 /uL (1500-7000); Neutrophils Percent Auto 43.5 % (50-75); Platelet Count 277 X10^3/uL (150-400); Red Blood Cell Count 4.22 X10^6/uL (4.0-5.2); Red Cell Distribution Width 14.3 % (11.6-14.8); White Blood Cell Count 6.2 X10^3/uL (4.5-11.0)
[2021-09-02 20:30] LABS: Alanine Aminotransferase 20 IU/L (<35); Albumin 4.4 g/dL (3.5-5.0); Albumin Globulin Ratio 1.3 (1.0-2.8); Alkaline Phosphatase 48 U/L (38-126); Aspartate Aminotransferase 30 IU/L (14-36); BUN Creatinine Ratio 19.3 (6-22); Bilirubin Total 0.4 mg/dL (0.2-1.3); Blood Urea Nitrogen 22 mg/dL (7-17); Calcium 9.7 mg/dL (8.4-10.2); Carbon Dioxide 29 mmol/L (22-32); Chloride 104 mmol/L (98-107); Estimated Glomerular Filt Rate 48.1 mL/min (>60); Globulin 3.4 g/dL (1.7-4.1); Glucose 87 mg/dL (80-110); HEMOLYSIS < 15 (0-50); Potassium 4.6 mmol/L (3.4-5.1); Sodium 138 mmol/L (137-145); Total Protein 7.8 g/dL (6.3-8.2)
[2021-09-02 20:49] LABS: TSH w/ Reflex to FT4 3.81 uIU/mL (0.47-4.68)
== END ==
PROVIDERS: PCP Family Medicine; Visit Provider Family Medicine
DX: E11.9 Type 2 diabetes mellitus without complications (principal); R35.89 Other polyuria; I10 Essential (primary) hypertension; M48.062 Spinal stenosis, lumbar region with neurogenic claudication; N28.9 Disorder of kidney and ureter, unspecified; Z79.899 Other long term (current) drug therapy
CPT/HCPCS: 80053; 80307; 83036; 84443; 85025

== ENCOUNTER → 2021-09-09 16:04 | Outpatient (CLI) | payer MEDICARE, MEDICAID, SELFPAY ==
--- NOTE | 2021-09-09 16:05 | DI.MRI.S_ITS ---
PROCEDURE: MR LUMBAR SPINE WO CON INDICATIONS: Progressive lower pain, increasing radiculopathy history lum TECHNIQUE: Noncontrast sagittal T1 spin echo and T2 fast echo, sagittal STIR, axial T1 and T2 fast spin echo through the lumbar spine. In cases with scoliosis, additional coronal T2 fast spin echo may be performed. COMPARISON: [facility], MR, MR LUMBAR SPINE WO CON, 05/22/2019, 14:50. [facility] ([place]), CR, XR LUMBAR SPINE 2-3V, 01/01/2021, 15:28. FINDINGS: Anterolisthesis of L4 on L5 measuring 4 millimeters. No definite evidence of pars defect. Otherwise normal alignment. Vertebral body heights maintained. No suspicious focal marrow signal abnormality. Marrow edema surrounding facet osteoarthropathy at L4-L5, right greater than left, where there is also some adjacent soft tissue edema. Normal position and appearance of the conus. Regional soft tissues are otherwise normal. T12-L1: No spinal canal or neural foraminal stenosis. L1-L2: No spinal canal or neural foraminal stenosis. Mild facet hypertrophy. L2-L3: No spinal canal or neural foraminal stenosis. Mild facet hypertrophy. L3-L4: Disc bulge flattens the ventral thecal sac. No mass effect upon the traversing L4 nerve roots. No neural foraminal stenosis. Moderate facet hypertrophy and buckling of the ligamentum flavum. L4-L5: Bulky facet hypertrophy flattens and indents the dorsal thecal sac along with buckling of the ligamentum flavum. Pseudo bulge related to the anterolisthesis combines with true disc bulge to flatten and indent the ventral thecal sac. There is overall severe spinal canal stenosis. Near complete effacement of CSF within the thecal sac at this level along with laxity of the nerve roots above and below this level suggesting compression. Mild right and moderate left neural foraminal narrowing due to these factors. L5-S1: Diffuse disc bulge and a superimposed broad-based posterior disc protrusion. Displacement of the bilateral descending S1 nerve roots within both subarticular zones, more pronounced on the right where there is severe subarticular zone stenosis and probable impingement. Moderate to severe neural foraminal stenosis bilaterally, with flattening of the exiting L5 nerve roots. IMPRESSION: Multilevel multifactorial degenerative changes, with severe spinal canal stenosis at L4-L5 and severe right subarticular zone stenosis at L5-S1. Varying degrees of neural foraminal stenosis, moderate-severe at L5-S1. Dictated by: Silvio Khan M.D. on 09/10/2021 at 8:43 Approved by: Silvio Khan M.D. on 09/10/2021 at 8:47
== END ==
PROVIDERS: PCP Family Medicine; Referring Provider Family Medicine; Visit Provider Family Medicine
DX: M48.062 Spinal stenosis, lumbar region with neurogenic claudication (principal); M48.07 Spinal stenosis, lumbosacral region; I10 Essential (primary) hypertension; N28.9 Disorder of kidney and ureter, unspecified; M47.26 Other spondylosis with radiculopathy, lumbar region; E11.9 Type 2 diabetes mellitus without complications
CPT/HCPCS: 72148

== ENCOUNTER → 2022-02-07 11:09 | Outpatient (CLI) | payer MEDICARE, MEDICAID, SELFPAY ==
[2022-02-07 20:09] LABS: Add Manual Diff / Slide Review NO; Basophils Absolute Auto 100 /uL (0-100); Eosinophils Absolute Auto 400 /uL (0-450); Eosinophils Percent Auto 5.5 % (2-4); Hematocrit 35.2 % (36-46); Lymphocytes Absolute Auto 2800 /uL (1100-4500); Lymphocytes Percent Auto 43.5 % (25-40); Mean Corpuscular Hemoglobin 29.2 PG (26-34); Mean Corpuscular Volume 85.8 fL (80-100); Monocytes Absolute Auto 600 /uL (0-900); Monocytes Percent Auto 9.5 % (3-14); Neutrophils Absolute Auto 2600 /uL (1500-7000); Neutrophils Percent Auto 40.5 % (50-75); Platelet Count 312 X10^3/uL (150-400); Red Cell Distribution Width 14.3 % (11.6-14.8); White Blood Cell Count 6.4 X10^3/uL (4.5-11.0)
[2022-02-07 20:22] LABS: Hemoglobin A1C% w Est Avg Glu 6.1 % (4.0-6.0)
[2022-02-07 20:25] LABS: Alanine Aminotransferase 19 IU/L (<35); Albumin 4.1 g/dL (3.5-5.0); Albumin Globulin Ratio 1.3 (1.0-2.8); Alkaline Phosphatase 51 U/L (38-126); Aspartate Aminotransferase 25 IU/L (14-36); Bilirubin Total 0.4 mg/dL (0.2-1.3); Blood Urea Nitrogen 30 mg/dL (7-17); Carbon Dioxide 28 mmol/L (22-32); Chloride 104 mmol/L (98-107); Cholesterol 231 mg/dL (140-199); Estimated Glomerular Filt Rate > 60 mL/min (>60); Globulin 3.1 g/dL (1.7-4.1); Glucose 103 mg/dL (80-110); HDL Cholesterol 58 mg/dL (40-60); HEMOLYSIS < 15 (0-50); LDL Cholesterol Calculated 106 mg/dL (<100); Potassium 4.7 mmol/L (3.4-5.1); Sodium 140 mmol/L (137-145); Total Protein 7.2 g/dL (6.3-8.2); Triglycerides 337 mg/dL (35-150)
== END ==
PROVIDERS: PCP Family Medicine; Visit Provider Family Medicine
DX: I10 Essential (primary) hypertension (principal); E11.9 Type 2 diabetes mellitus without complications; F11.90 Opioid use, unspecified, uncomplicated; N28.9 Disorder of kidney and ureter, unspecified
CPT/HCPCS: 80053; 80061; 83036; 85025

== ENCOUNTER → 2022-05-17 13:51 | Outpatient (CLI) | payer MEDICARE, MEDICAID, SELFPAY ==
[2022-05-17 18:55] LABS: Add Manual Diff / Slide Review NO; Basophils Absolute Auto 100 /uL (0-100); Basophils Percent Auto 1.2 % (0-2); Eosinophils Absolute Auto 300 /uL (0-450); Eosinophils Percent Auto 4.4 % (2-4); Hematocrit 35.9 % (36-46); Hemoglobin 12.2 g/dL (12.0-16.0); Lymphocytes Absolute Auto 2500 /uL (1100-4500); Lymphocytes Percent Auto 32.5 % (25-40); Mean Corpuscular HGB Conc 33.8 % (30-36); Mean Corpuscular Hemoglobin 29.2 PG (26-34); Mean Corpuscular Volume 86.4 fL (80-100); Monocytes Absolute Auto 700 /uL (0-900); Monocytes Percent Auto 8.6 % (3-14); Neutrophils Absolute Auto 4100 /uL (1500-7000); Neutrophils Percent Auto 53.3 % (50-75); Platelet Count 291 X10^3/uL (150-400); Red Blood Cell Count 4.16 X10^6/uL (4.0-5.2); Red Cell Distribution Width 14.2 % (11.6-14.8); White Blood Cell Count 7.7 X10^3/uL (4.5-11.0)
[2022-05-17 19:01] LABS: Alanine Aminotransferase 24 IU/L (<35); Albumin 4.5 g/dL (3.5-5.0); Albumin Globulin Ratio 1.4 (1.0-2.8); Alkaline Phosphatase 70 U/L (38-126); Aspartate Aminotransferase 30 IU/L (14-36); BUN Creatinine Ratio 25.5 (6-22); Bilirubin Total 0.4 mg/dL (0.2-1.3); Blood Urea Nitrogen 26 mg/dL (7-17); Calcium 9.1 mg/dL (8.4-10.2); Carbon Dioxide 24 mmol/L (22-32); Chloride 99 mmol/L (98-107); Cholesterol 240 mg/dL (140-199); Estimated Glomerular Filt Rate > 60 mL/min (>60); Globulin 3.2 g/dL (1.7-4.1); Glucose 91 mg/dL (80-110); HDL Cholesterol 71 mg/dL (40-60); HEMOLYSIS 27 (0-50); LDL Cholesterol Calculated 119 mg/dL (<100); Potassium 4.5 mmol/L (3.4-5.1); Sodium 136 mmol/L (137-145); Total Protein 7.7 g/dL (6.3-8.2); Triglycerides 250 mg/dL (35-150)
[2022-05-17 19:06] LABS: Hemoglobin A1C% w Est Avg Glu 6.4 % (4.0-6.0)
== END ==
PROVIDERS: PCP Family Medicine; Visit Provider Family Medicine
DX: I10 Essential (primary) hypertension (principal); E11.9 Type 2 diabetes mellitus without complications; F11.90 Opioid use, unspecified, uncomplicated; G89.4 Chronic pain syndrome
CPT/HCPCS: 80053; 80061; 80305; 83036; 85025

== ENCOUNTER → 2022-09-29 11:48 | Outpatient (CLI) | payer MEDICARE, MEDICAID, SELFPAY ==
--- NOTE | 2022-09-29 11:49 | DI.MRI.S_ITS ---
PROCEDURE: MR CERVICAL SPINE WO CON INDICATIONS: Progressive left arm radiculopathy, history C4-C6 fusion. TECHNIQUE: Noncontrast sagittal T1 spin echo and T2 fast spin echo, sagittal STIR, foraminal oblique sagittal T2 fast spin echo, and axial gradient echo or T2 fast spin echo through the cervical spine. COMPARISON: [facility], MR, MR CERVICAL SPINE WO CON, 04/26/2019, 13:42. FINDINGS: Image quality: Good, but there is metallic artifact Alignment: Straightening normal cervical lordosis. Is Marrow: Similar appears of C4-C6 anterior fusion construct. No displaced fracture. No traumatic malalignment. Cord: There is indentation of the cord at C6-C7. Soft tissues: No pathologic prevertebral soft tissue swelling. Specific levels: C2-C3: No stenosis. C3-C4: Bilateral facet arthropathy. No stenosis. C4-C5: Mild central narrowing, similar to prior. No neural foraminal stenosis. C5-C6: Mild central narrowing, similar to prior, asymmetrically affecting the right side. No neural foraminal stenosis. C6-C7: As before, moderate to severe central narrowing, possibly progressed, particularly affecting the right hemicord this is due to a posterior disc protrusion and osteophyte complex, as well as facet and uncovertebral arthropathy. Moderate bilateral neural foraminal narrowing. This is also slightly progressed. C7-T1: No stenosis. IMPRESSION: Progressed degenerative changes at C6-C7, below the level of fusion, with both central and neural foraminal stenosis. Dictated by: Armando Bob M.D. on 09/29/2022 at 15:22 Approved by: Armando Bob M.D. on 09/29/2022 at 15:28
== END ==
PROVIDERS: PCP Family Medicine; Referring Provider Family Medicine; Visit Provider Family Medicine
DX: M47.22 Other spondylosis with radiculopathy, cervical region (principal); M48.02 Spinal stenosis, cervical region; M54.2 Cervicalgia; G89.4 Chronic pain syndrome; Z98.1 Arthrodesis status
CPT/HCPCS: 72141

== ENCOUNTER → 2023-02-28 10:39 | Outpatient (CLI) | payer MEDICARE, MEDICAID, SELFPAY ==
[2023-02-28 20:40] LABS: Add Manual Diff / Slide Review NO; Basophils Absolute Auto 0 /uL (0-100); Basophils Percent Auto 0.6 % (0-2); Eosinophils Absolute Auto 200 /uL (0-450); Eosinophils Percent Auto 3.8 % (2-4); Hematocrit 36.4 % (36-46); Hemoglobin 12.3 g/dL (12.0-16.0); Lymphocytes Absolute Auto 2600 /uL (1100-4500); Lymphocytes Percent Auto 39.9 % (25-40); Mean Corpuscular HGB Conc 33.7 % (30-36); Mean Corpuscular Hemoglobin 28.9 PG (26-34); Mean Corpuscular Volume 85.6 fL (80-100); Monocytes Absolute Auto 700 /uL (0-900); Neutrophils Absolute Auto 3000 /uL (1500-7000); Neutrophils Percent Auto 45.7 % (50-75); Platelet Count 287 X10^3/uL (150-400); Red Blood Cell Count 4.25 X10^6/uL (4.0-5.2); Red Cell Distribution Width 14.4 % (11.6-14.8); White Blood Cell Count 6.6 X10^3/uL (4.5-11.0)
[2023-02-28 21:06] LABS: Hemoglobin A1C% w Est Avg Glu 5.8 % (4.0-6.0)
[2023-02-28 21:29] LABS: TSH w/ Reflex to FT4 4.58 uIU/mL (0.47-4.68)
[2023-02-28 21:53] LABS: Microalbumin Urine Random 4.5 mg/dL (0-1.6)
[2023-02-28 22:20] LABS: Creatinine Urine Random 427.6 mg/dL; Microalbumi Creatinin Ratio Ur 10.5 ug/mg CR (<30)
[2023-03-01 03:17] LABS: Alanine Aminotransferase 23 IU/L (<35); Albumin 4.3 g/dL (3.5-5.0); Albumin Globulin Ratio 1.4 (1.0-2.8); Alkaline Phosphatase 52 U/L (38-126); Aspartate Aminotransferase 29 IU/L (14-36); BUN Creatinine Ratio 19.1 (6-22); Bilirubin Total 0.4 mg/dL (0.2-1.3); Blood Urea Nitrogen 21 mg/dL (7-17); Calcium 9.4 mg/dL (8.4-10.2); Carbon Dioxide 25 mmol/L (22-32); Chloride 104 mmol/L (98-107); Cholesterol 246 mg/dL (140-199); Estimated Glomerular Filt Rate 56 mL/min (>60); Globulin 3.1 g/dL (1.7-4.1); Glucose 91 mg/dL (80-110); HDL Cholesterol 70 mg/dL (40-60); HEMOLYSIS < 15 (0-50); LDL Cholesterol Calculated 147 mg/dL (<100); Sodium 140 mmol/L (137-145); Total Protein 7.4 g/dL (6.3-8.2); Triglycerides 147 mg/dL (35-150)
== END ==
PROVIDERS: PCP Family Medicine; Visit Provider Family Medicine
DX: E11.9 Type 2 diabetes mellitus without complications (principal); I10 Essential (primary) hypertension; N28.9 Disorder of kidney and ureter, unspecified; Z98.1 Arthrodesis status; D64.9 Anemia, unspecified; E86.0 Dehydration; G89.29 Other chronic pain; G89.4 Chronic pain syndrome; M25.551 Pain in right hip; E11.49 Type 2 diabetes mellitus with other diabetic neurological complication
CPT/HCPCS: 80053; 80061; 82043; 82570; 83036; 84443; 85025

== ENCOUNTER → 2023-04-13 14:46 | Outpatient (CLI) | payer MEDICARE, MEDICAID, SELFPAY ==
[2023-04-13 19:35] LABS: UR Morphine/Opiate cutoff 300 Positive (Negative); Ur Creatinine Normal (Normal); Ur Specific Gravity Normal (Normal); Urine Amphetamines Negative (Negative); Urine Barbiturates Negative (Negative); Urine Benzodiazepines Negative (Negative); Urine Cocaine Negative (Negative); Urine MDMA Negative (Negative); Urine Methadone Negative (Negative); Urine Methamphetamines Negative (Negative); Urine Oxycodone Positive (Negative); Urine Phencyclidine Negative (Negative); Urine Tetrahydrocannabinol Negative (Negative); Urine Tricyclic Antidepressant Negative (Negative); Urine pH Normal (Normal)
== END ==
PROVIDERS: PCP Family Medicine; Visit Provider Family Medicine
DX: G89.4 Chronic pain syndrome (principal); F11.90 Opioid use, unspecified, uncomplicated
CPT/HCPCS: 80305

== ENCOUNTER 2023-06-19 08:51 | Day surgery (SDC) | payer MEDICARE, MEDICAID, SELFPAY ==
--- NOTE | 2023-06-19 | PATH_ITS ---
[facility] Accession Number: [id number] No. of containers..02 Tissue . 01 Material submitted: . PART A: colon - DESCENDING PART B: colon - ASCENDING . 01 Diagnosis: A. COLON, DESCENDING, BIOPSY: - BENIGN POLYPOID COLONIC MUCOSA. - NEGATIVE FOR DYSPLASIA. -- B. COLON, ASCENDING, BIOPSY: - TUBULAR ADENOMA/S IN THREE COLONIC MUCOSA FRAGMENTS. TXN 06/29/2023 1440 Local . 01 Electronically signed: . Lisa Oakes MD, Pathologist NPI- [id number] . 01 Gross description: . Part A: DESCENDING : Received in formalin are 2 fragment(s) of fleming, soft tissue measuring 0.3 x 0.3 x 0.2 cm to 0.4 x 0.4 x 0.2 cm submitted entirely in 1 cassette(s) Part B: ASCENDING : Received in formalin are 3 fragment(s) of fleming, soft tissue measuring 0.4 x 0.3 x 0.3 cm to 0.8 x 0.6 x 0.6 cm submitted entirely in 1 cassette(s) /EFRA 06/20/2023 1947 Local . 01 Pathologist provided ICD-10: Z12.11 . 01 CPT . 510542, [id number] Specimen Comment: A courtesy copy of this report has been sent to [phone] Performed at: 01 [facility] [address] [place] [address] [address], [place], [place] [id number] MD Micheal Grijalva MD Phone: [phone]
[2023-06-19 09:13] VITALS: BP 166/85; PULSE 84; RESP 16; TEMP 36.5; O2SAT 99; BMI 40.7
--- NOTE | 2023-06-19 09:22 | PM.HP.1 ---
History of Present Illness History of Present Illness Date Patient Seen: 06/19/23 Time Patient Seen: 09:22 Chief complaint: Colonoscopy Narrative: Colon cancer screening [facility] Medical History Chronic right hip pain Anemia Acute dehydration Chronic pain syndrome Hypertension Fatigue Lumbar stenosis with neurogenic claudication Renal insufficiency Other abnormalities of gait and mobility Cervicalgia Dorsalgia Low back pain Nonscarring hair loss, unspecified Polycystic ovarian syndrome Sleep apnea Transient ischemic attack Shoulder pain Foot pain Fibromyalgia Carpal tunnel syndrome Ankle pain Ovarian cyst Chronic musculoskeletal pain Arthritis, multiple joint involvement Diabetic neuropathy Diabetes mellitus type II, non insulin dependent Surgical History Anesthesia History of tissue graft History of carpal tunnel release (~2015) History of knee surgery History of delivery History of cholecystectomy Status post cervical spinal fusion Family History Father History of heart disease Mother Brain aneurysm Grandfather Cancer Grandfather Stroke Grandmother No problems noted. Family/Other Sleep apnea Insomnia Restless leg Obesity Hypertension Diabetes mellitus Depression Anxiety Social History Smoking Status: Never smoker Meds Home Medications and Allergies Home Medications Medication Instructions Recorded Confirmed Type Disabled Parking Permit #1 ea 08/05/21 04/13/23 Rx blood sugar diagnostic (True #200 ea 09/20/21 04/13/23 Rx Metrix Glucose Test Strip) blood-glucose meter (True Metrix #1 ea 09/20/21 04/13/23 Rx Air Glucose Meter kit) lancets 30 gauge (TRUEplus Lancets) #200 ea 09/20/21 04/13/23 Rx estradiol 0.01% (0.1 mg/gram) 1 g vaginal 2XW Lichen sclerosis 11/10/22 04/13/23 Rx vaginal cream #42.5 grams halobetasol propionate 0.05 % 1 applic topical .COMPLEX #30 grams 11/11/22 04/13/23 Rx topical ointment lisinopril 10 1 tab PO DAILY #90 tabs 01/26/23 04/13/23 Rx mg-hydrochlorothiazide 12.5 mg tablet pregabalin 75 mg capsule 75 mg PO TID #270 caps 02/18/23 04/13/23 Rx metformin 500 mg tablet 1,000 mg (2 x 500 mg) PO BID #360 05/12/23 Rx tabs oxycodone-acetaminophen 10 mg-325 2 tab PO QID PRN pain 30 days #210 05/29/23 Rx mg tablet tabs oxymorphone 20 mg tablet,extended 20 mg PO BID #60 tabs 05/29/23 Rx release,12 hr sodium,potassium,mag sulfates 17.5 See Rx Instructions PO .COMPLEX 06/06/23 Rx gram-3.13 gram-1.6 gram oral soln #354 mL (Suprep Bowel Prep Kit) Allergies Allergy/AdvReac Type Severity Reaction Status Date / Time amitriptyline Allergy Unknown Verified 04/13/23 14:56 Review of Systems Review of Systems ROS: Yes All systems reviewed with the patient and are negative except as otherwise documented Exam Const General: cooperative and healthy appearing Nutritional Appearance: overweight HENMT Head: normal to inspection, normocephalic and atraumatic Eyes General: appearance normal, both eyes and all related structures Neck Neck: trachea midline Resp Effort & Inspection: normal respiratory effort and able to speak in complete sentences Cardio Rate: regular rate Rhythm: regular rhythm GI Inspection: normal to inspection Palpation: soft Skin General: elasticity normal and turgor normal Neuro General: patient alert, patient awake and patient oriented x3 Psych Mental Status: mental status grossly normal Judgment: judgment good Assessment & Plan Assessment & Plan narrative: colon cancer screening with colonoscopy using anesthesia Time Spent With Patient Time with patient: less than 30 minutes
[2023-06-19] MEDS: ONDANSETRON 4 MG/2 ML INJ (09:37)
[2023-06-19] MEDS: LACTATED RINGERS 1,000 ML 42 ML IV (09:37)
--- NOTE | 2023-06-19 09:49 | PM.OP.COLON ---
Operative Date/Time/Diagnoses Date of procedure: 06/19/23 Time of procedure: 09:49 Pre-op diagnosis: colon cancer screening Post-op diagnosis: same Procedure & Clinicians Study performed: colonoscopy w cold snare polypectomy Same procedure as scheduled: Yes Indications: colon cancer screening Surgeon: Kailey Gatica Procedure Notes Procedure in detail: Preop dx: colon cancer screening postop dx: same Operative procedure: Colonoscopy with anesthesia and cold snare polypectomy Surgeon: Mehreen Gatica MD Findings: Scant small diverticuli of the sigmoid colon. Single sessile polyp of the ascending colon 3 mm in size Procedure: Patient placed in lateral position. Rectal exam performed showing normal tone no masses. Colonoscope inserted into the rectum and advanced to ileocecal valve with minimal difficulty. Insufflation extraction of the scope and the above findings retroflex was included in the rectum. Impression: Single polyp identified. Scant small diverticuli of the sigmoid colon. Plan: Repeat colonoscopy in 5 years if the pathology confirms adenomatous polyp, otherwise 10 year recall Findings: divertiulosis and polyp(s) Specimen(s): other (Polyp of the ascending colon 3 mm in size) Complications: none Post-procedure Recommendations: Colonoscopy in 5 years Follow up: as needed Disposition: PACU
[2023-06-19 10:52] VITALS: BP 121/77; PULSE 93; RESP 17; TEMP 36.2; O2SAT 98
[2023-06-19 10:57] VITALS: BP 144/84; PULSE 72; RESP 16; O2SAT 97
[2023-06-19 11:03] VITALS: BP 125/65; PULSE 73; RESP 19; TEMP 36.3; O2SAT 99
[2023-06-19 11:18] VITALS: BP 130/67; PULSE 70; RESP 15; TEMP 36.6; O2SAT 100
== END 2023-06-19 11:30 | disposition home or self-care (01) ==
PROVIDERS: PCP Family Medicine; Referring Provider Surgery; Visit Provider Surgery
PROC: 0DJD8ZZ Inspection of Lower Intestinal Tract, Via Natural or Artificial Opening Endoscopic (ICD-10-PCS; CPT 45378; principal; 2023-06-19 09:45)
DX: Z12.11 Encounter for screening for malignant neoplasm of colon (principal); K57.30 Diverticulosis of large intestine without perforation or abscess without bleeding; D12.2 Benign neoplasm of ascending colon
CPT/HCPCS: 45385; 45380; 82962; J2405; J2704

== ENCOUNTER → 2023-08-15 11:34 | Outpatient (CLI) | payer MEDICARE, MEDICAID, SELFPAY ==
[2023-08-15 19:16] LABS: Add Manual Diff / Slide Review NO; Basophils Absolute Auto 0 /uL (0-100); Basophils Percent Auto 0.4 % (0-2); Eosinophils Absolute Auto 300 /uL (0-450); Eosinophils Percent Auto 4.2 % (2-4); Hematocrit 36.3 % (36-46); Hemoglobin 12.2 g/dL (12.0-16.0); Lymphocytes Absolute Auto 2500 /uL (1100-4500); Lymphocytes Percent Auto 32.8 % (25-40); Mean Corpuscular HGB Conc 33.6 % (30-36); Mean Corpuscular Hemoglobin 28.6 PG (26-34); Monocytes Absolute Auto 700 /uL (0-900); Neutrophils Absolute Auto 4000 /uL (1500-7000); Neutrophils Percent Auto 53.6 % (50-75); Platelet Count 287 X10^3/uL (150-400); Red Blood Cell Count 4.27 X10^6/uL (4.0-5.2); Red Cell Distribution Width 14.1 % (11.6-14.8); White Blood Cell Count 7.5 X10^3/uL (4.5-11.0)
[2023-08-15 19:37] LABS: Appearance Urine UA CLEAR; Bilirubin Urine UA NEGATIVE (NEGATIVE); Color Urine UA YELLOW; Glucose Urine UA NEGATIVE (Negative); Ketones Urine UA TRACE (NEGATIVE); Leukocyte Esterase Urine UA NEGATIVE (NEGATIVE); Nitrite Urine UA NEGATIVE (Negative); Occult Blood Urine UA NEGATIVE (Negative); Protein Urine UA TRACE (Negative); Specific Gravity Urine UA >=1.030 (1.000-1.035); Urobilinogen Urine UA 0.2 E.U./dL (0.2)
[2023-08-15 19:40] LABS: Microalbumin Urine Random 4.1 mg/dL (0-1.6)
[2023-08-15 19:43] LABS: Alanine Aminotransferase 23 IU/L (<35); Albumin 4.2 g/dL (3.5-5.0); Albumin Globulin Ratio 1.4 (1.0-2.8); Alkaline Phosphatase 49 U/L (38-126); Aspartate Aminotransferase 30 IU/L (14-36); BUN Creatinine Ratio 20.4 (6-22); Bilirubin Total 0.5 mg/dL (0.2-1.3); Blood Urea Nitrogen 21 mg/dL (7-17); Calcium 9.4 mg/dL (8.4-10.2); Carbon Dioxide 27 mmol/L (22-32); Chloride 103 mmol/L (98-107); Cholesterol 247 mg/dL (140-199); Estimated Glomerular Filt Rate > 60 mL/min (>60); Glucose 99 mg/dL (80-110); HDL Cholesterol 73 mg/dL (40-60); HEMOLYSIS < 15 (0-50); LDL Cholesterol Calculated 134 mg/dL (<100); Potassium 4.4 mmol/L (3.4-5.1); Sodium 139 mmol/L (137-145); Total Protein 7.2 g/dL (6.3-8.2); Triglycerides 202 mg/dL (35-150)
[2023-08-15 19:50] LABS: Bacteria Urine Occasional (0-1); Hyaline Casts Urine 1-5/LPF; RBC Urine 0-1/HPF (0-5/HPF); Squamous Epithelial Cell Urine 10-30 /HPF (0-5/HPF); Urine Volume Low Vol <10mL (spun); WBC Urine 0-1/HPF (0-5/HPF)
[2023-08-15 19:51] LABS: Culture Indicated Urine Cult Not Indicated
[2023-08-15 20:15] LABS: TSH w/ Reflex to FT4 7.27 uIU/mL (0.47-4.68)
[2023-08-15 20:40] LABS: Free T4, Direct Thyroxine 1.05 ng/dL (0.78-2.19)
[2023-08-15 20:45] LABS: Creatinine Urine Random 370.2 mg/dL
[2023-08-17 05:15] LABS: x Labcorp Estim. Avg Glu (eAG) 143 mg/dL (.); x Labcorp Hemoglobin A1c 6.6 % (4.8-5.6)
== END ==
PROVIDERS: PCP Family Medicine; Visit Provider Family Medicine
DX: D64.9 Anemia, unspecified; I10 Essential (primary) hypertension; E11.40 Type 2 diabetes mellitus with diabetic neuropathy, unspecified; N28.9 Disorder of kidney and ureter, unspecified
CPT/HCPCS: 80053; 80061; 81001; 82043; 82570; 83036; 84439; 84443; 85025

== ENCOUNTER → 2023-10-11 11:14 | Outpatient (CLI) | payer MEDICARE, MEDICAID, SELFPAY ==
--- NOTE | 2023-10-11 11:19 | DI.RAD.S_ITS ---
PROCEDURE: XR KNEE RT 3V INDICATIONS: right knee pain TECHNIQUE: 3 views of the knee were acquired. COMPARISON: [facility], , KNEE 1-2 VIEWS RIGHT, 08/15/2007, 12:35. FINDINGS: Bones: No fractures or dislocations. No suspicious bony lesions. Tricompartmental osteoarthritic changes with osteophytosis and moderate to severe medial compartment joint space narrowing. Soft tissues: No joint effusion. No suspicious soft tissue calcifications. Chondrocalcinosis. IMPRESSION: 1. Moderate to severe osteoarthritic changes of the right knee. 2. Chondrocalcinosis is present. Differential diagnosis includes but is not limited to hemochromatosis, hyperparathyroidism and CPPD. Dictated by: Roosevelt Mercer M.D. on 10/11/2023 at 13:19 Approved by: Roosevelt Mercer M.D. on 10/11/2023 at 13:20
--- NOTE | 2023-10-11 11:19 | DI.CT.S_ITS ---
PROCEDURE: CT HEAD/BRAIN WO CON INDICATIONS: progressive headache TECHNIQUE: Noncontrast 4.5 mm thick angled axial sections acquired from the foramen magnum to the vertex, with coronal and sagittal reformats. For radiation dose reduction, the following was used: automated exposure control, adjustment of mA and/or kV according to patient size. COMPARISON: None. FINDINGS: Image quality: Diagnostic. CSF spaces: Basal cisterns are patent. No extra-axial fluid collections. The ventricles are symmetric in size and shape. Brain: No intracranial bleeds or masses. There is cerebral volume loss for age, with resultant ventricular and sulcal prominence. There are periventricular and deep white matter chronic small vessel ischemic changes. There is intracranial internal carotid artery atherosclerosis. Skull and face: Calvarium and visualized facial bones appear intact, without suspicious lesions. Sinuses: Visualized sinuses and mastoids are clear. IMPRESSION: No cause for patient's symptoms is identified. No acute intracranial pathology. Dictated by: Roosevelt Mercer M.D. on 10/11/2023 at 13:20 Approved by: Roosevelt Mercer M.D. on 10/11/2023 at 13:21
== END ==
PROVIDERS: PCP Family Medicine; Referring Provider Family Medicine; Visit Provider Family Medicine
DX: I65.29 Occlusion and stenosis of unspecified carotid artery (principal); R51.9 Headache, unspecified; M11.261 Other chondrocalcinosis, right knee; M25.561 Pain in right knee
CPT/HCPCS: 70450; 73562

== ENCOUNTER → 2024-04-11 16:19 | Outpatient (CLI) | payer MEDICARE, MEDICAID, SELFPAY ==
--- NOTE | 2024-04-11 16:20 | DI.MRI.S_ITS ---
PROCEDURE: MR LUMBAR SPINE WO CON INDICATIONS: eval hx back surgery, loss of bladder control TECHNIQUE: Noncontrast sagittal T1 spin echo and T2 fast echo, sagittal STIR, and T2 fast spin echo through the lumbar spine. In cases with scoliosis, additional coronal T2 fast spin echo may be performed. COMPARISON: [facility] ([place]), CR, XR LUMBAR SPINE 2-3V, 01/01/2021, 15:28. [facility], MR, MR LUMBAR SPINE WO CON, 09/09/2021, 16:09. [facility], MR, MR LUMBAR SPINE WO CON, 05/22/2019, 14:50. FINDINGS: Image quality: Excellent. Alignment and Curvature: There is minimal anterolisthesis seen at the L4-L5 level. Bone Marrow: Marrow is of normal overall signal. No acute vertebral body compression fractures. Spinal Cord: Conus medullaris terminates at the T12-L1 level. Visualized cord demonstrates normal signal and size. Paraspinous Soft Tissues: No paravertebral masses. T12-L1: Normal appearance. L1-L2: Normal appearance. L2-L3: No significant abnormality is seen. L3-L4: The disc height is well-preserved. Loss of disc signal is seen at this level. Moderate generalized disc bulge is seen. Moderate facet joint hypertrophy is seen. Associated hypertrophy of the ligamentum flavum can be seen. There is mild left-sided and no significant right-sided neural foraminal narrowing. Mild central canal narrowing is seen. There is slight progression compared to the prior. L4-L5: The disc height is well-preserved. Loss of disc signal is seen at this level. Moderate generalized disc bulge is seen. At least moderate facet hypertrophy is seen. Associated hypertrophy of the ligamentum flavum can be seen. There is moderate left-sided and no significant right-sided neural foraminal narrowing. Moderate to severe central canal narrowing is seen at this level. These imaging findings have progressed compared to the prior study. L5-S1: The disc height is well-preserved. Loss of disc signal is seen at this level. Mild to moderate disc bulge is seen. Moderate facet joint hypertrophy is seen. There is at least moderate bilateral neural foraminal narrowing seen, left worse than right. Compression at least moderate central canal narrowing is seen at this level. When comparison is made with the prior images, these findings are similar. IMPRESSION: Multiple levels of lumbar spine degenerative change can be seen inferiorly, which are mildly progressed at L3-L4 and L4-L5 compared to the 2021 prior. Dictated by: Olivier Falcon M.D. on 04/11/2024 at 16:34 Approved by: Olivier Falcon M.D. on 04/11/2024 at 16:37
== END ==
PROVIDERS: PCP Family Medicine; Referring Provider Family Medicine; Visit Provider Family Medicine
DX: M48.062 Spinal stenosis, lumbar region with neurogenic claudication (principal); M47.816 Spondylosis without myelopathy or radiculopathy, lumbar region; M47.817 Spondylosis without myelopathy or radiculopathy, lumbosacral region; N39.3 Stress incontinence (female) (male); N39.41 Urge incontinence; K59.00 Constipation, unspecified
CPT/HCPCS: 51798; 72148; 99213

== ENCOUNTER → 2024-06-11 12:39 | Outpatient (CLI) | payer MEDICARE, MEDICAID, SELFPAY ==
[2024-06-11 21:01] LABS: Influenza A - CEPHEID Flu A NEGATIVE (NEGATIVE); Influenza B - CEPHEID Flu B NEGATIVE (NEGATIVE); Respiratory Syncytial Virus Negative (Negative)
[2024-06-11 21:48] LABS: COVID-19 CEPHEID 4-PLEX PCR Negative (Negative)
== END ==
PROVIDERS: PCP Family Medicine; Visit Provider Physician Assistant Medical
DX: J06.9 Acute upper respiratory infection, unspecified (principal)
CPT/HCPCS: 0241U

== ENCOUNTER → 2024-06-13 13:27 | Outpatient (CLI) | payer MEDICARE, MEDICAID, SELFPAY ==
[2024-06-13 19:45] LABS: Alanine Aminotransferase 26 IU/L (<35); Albumin 4.3 g/dL (3.5-5.0); Albumin Globulin Ratio 1.4 (1.0-2.8); Alkaline Phosphatase 53 U/L (38-126); Aspartate Aminotransferase 33 IU/L (14-36); BUN Creatinine Ratio 28.5 (6-22); Bilirubin Total 0.4 mg/dL (0.2-1.3); Blood Urea Nitrogen 37 mg/dL (7-17); Calcium 9.9 mg/dL (8.4-10.2); Carbon Dioxide 27 mmol/L (22-32); Chloride 101 mmol/L (98-107); Estimated Glomerular Filt Rate 46 mL/min (>60); Globulin 3.1 g/dL (1.7-4.1); Glucose 113 mg/dL (80-110); HEMOLYSIS < 15 (0-50); Potassium 4.5 mmol/L (3.4-5.1); Sodium 136 mmol/L (137-145); Total Protein 7.4 g/dL (6.3-8.2)
[2024-06-13 20:02] LABS: Free T4, Direct Thyroxine 1.11 ng/dL (0.78-2.19)
[2024-06-13 20:17] LABS: Creatinine Urine Random 157.33 mg/dL
[2024-06-13 20:22] LABS: Microalbumin Urine Random 0.7 mg/dL (0-1.6)
[2024-06-13 20:57] LABS: Hemoglobin A1C% w Est Avg Glu 6.3 % (4.0-6.0)
== END ==
PROVIDERS: PCP Family Medicine; Visit Provider Family Medicine
DX: E11.9 Type 2 diabetes mellitus without complications (principal); I10 Essential (primary) hypertension; D64.9 Anemia, unspecified
CPT/HCPCS: 80053; 82043; 82570; 83036; 84439; 84443

== ENCOUNTER → 2024-10-23 12:03 | Outpatient (CLI) | payer MEDICARE, MEDICAID, SELFPAY ==
[2024-10-23 19:15] LABS: Add Manual Diff / Slide Review NO; Basophils Absolute Auto 100 /uL (0-100); Basophils Percent Auto 0.7 % (0-2); Eosinophils Absolute Auto 300 /uL (0-450); Eosinophils Percent Auto 3.6 % (2-4); Hematocrit 35.9 % (36-46); Lymphocytes Absolute Auto 2100 /uL (1100-4500); Lymphocytes Percent Auto 28.6 % (25-40); Mean Corpuscular HGB Conc 33.3 % (30-36); Mean Corpuscular Hemoglobin 28.8 PG (26-34); Mean Corpuscular Volume 86.5 fL (80-100); Monocytes Absolute Auto 600 /uL (0-900); Monocytes Percent Auto 8.2 % (3-14); Neutrophils Absolute Auto 4400 /uL (1500-7000); Neutrophils Percent Auto 58.9 % (50-75); Platelet Count 292 X10^3/uL (150-400); Red Blood Cell Count 4.16 X10^6/uL (4.0-5.2); Red Cell Distribution Width 14.6 % (11.6-14.8); White Blood Cell Count 7.5 X10^3/uL (4.5-11.0)
[2024-10-23 19:18] LABS: HEMOLYSIS 26 (0-50); Iron 82 ug/dL (37-170)
[2024-10-23 19:27] LABS: Hemoglobin A1C% w Est Avg Glu 6.5 % (4.0-6.0)
[2024-10-23 19:29] LABS: Alanine Aminotransferase 26 IU/L (<35); Albumin 4.2 g/dL (3.5-5.0); Albumin Globulin Ratio 1.5 (1.0-2.8); Alkaline Phosphatase 60 U/L (38-126); Aspartate Aminotransferase 34 IU/L (14-36); BUN Creatinine Ratio 14.4 (6-22); Bilirubin Total 0.4 mg/dL (0.2-1.3); Blood Urea Nitrogen 16 mg/dL (7-17); Calcium 9.3 mg/dL (8.4-10.2); Carbon Dioxide 24 mmol/L (22-32); Chloride 107 mmol/L (98-107); Cholesterol 240 mg/dL (140-199); Estimated Glomerular Filt Rate 55 mL/min (>60); Globulin 2.8 g/dL (1.7-4.1); Glucose 116 mg/dL (70-99); HDL Cholesterol 68 mg/dL (40-60); HEMOLYSIS < 15 (0-50); LDL Cholesterol Calculated 135 mg/dL (<100); Potassium 4.9 mmol/L (3.4-5.1); Sodium 139 mmol/L (137-145); Triglycerides 187 mg/dL (35-150)
[2024-10-23 19:31] LABS: Percent Iron Saturation 27 % (15-50); Total Iron Binding Capacity 302 ug/dL (265-497); Transferrin 264 mg/dL (206-381)
[2024-10-23 19:36] LABS: Free T4, Direct Thyroxine 1.07 ng/dL (0.78-2.19)
[2024-10-23 19:50] LABS: Thyroid Stimulating Hormone 1.19 uIU/mL (0.47-4.68)
[2024-10-23 20:09] LABS: Vitamin B12 407 pg/mL (239-931)
== END ==
PROVIDERS: PCP Family Medicine; Visit Provider Family Medicine
DX: E03.9 Hypothyroidism, unspecified (principal); E11.9 Type 2 diabetes mellitus without complications; I10 Essential (primary) hypertension; N28.9 Disorder of kidney and ureter, unspecified; D64.9 Anemia, unspecified
CPT/HCPCS: 80053; 80061; 82607; 83036; 83540; 83550; 84439; 84443; 85025

== ENCOUNTER → 2025-03-24 13:37 | Outpatient (CLI) | payer MEDICARE, MEDICAID, SELFPAY ==
[2025-03-24 18:55] LABS: Add Manual Diff / Slide Review NO; Hematocrit 37.0 % (36-46); Hemoglobin 12.4 g/dL (12.0-16.0); Lymphocytes Absolute Auto 2600 /uL (1100-4500); Mean Corpuscular HGB Conc 33.4 % (30-36); Mean Corpuscular Hemoglobin 28.4 PG (26-34); Mean Corpuscular Volume 84.9 fL (80-100); Platelet Count 314 X10^3/uL (150-400)
[2025-03-24 19:11] LABS: HEMOLYSIS < 15 (0-50); Iron 83 ug/dL (37-170)
[2025-03-24 19:14] LABS: Alanine Aminotransferase 27 IU/L (<35); Albumin 4.4 g/dL (3.5-5.0); Albumin Globulin Ratio 1.4 (1.0-2.8); Alkaline Phosphatase 57 U/L (38-126); Blood Urea Nitrogen 24 mg/dL (7-17); Calcium 9.7 mg/dL (8.4-10.2); Carbon Dioxide 26 mmol/L (22-32); Chloride 105 mmol/L (98-107); Estimated Glomerular Filt Rate > 60 mL/min (>60); Globulin 3.1 g/dL (1.7-4.1); Glucose 95 mg/dL (70-99); HEMOLYSIS < 15 (0-50); Potassium 5.0 mmol/L (3.4-5.1); Sodium 138 mmol/L (137-145); Total Protein 7.5 g/dL (6.3-8.2); Uric Acid 6.1 mg/dL (2.5-6.2)
[2025-03-24 19:24] LABS: Percent Iron Saturation 24 % (15-50); Total Iron Binding Capacity 348 ug/dL (265-497); Transferrin 319 mg/dL (206-381)
[2025-03-24 19:27] LABS: Hemoglobin A1C% w Est Avg Glu 6.7 % (4.0-6.0)
[2025-03-24 19:43] LABS: Thyroid Stimulating Hormone 2.37 uIU/mL (0.47-4.68)
[2025-03-24 20:04] LABS: Vitamin B12 316 pg/mL (239-931)
== END ==
PROVIDERS: PCP Family Medicine; Visit Provider Family Medicine
DX: E03.9 Hypothyroidism, unspecified (principal); D64.9 Anemia, unspecified; E11.9 Type 2 diabetes mellitus without complications; M1A.09X0 Idiopathic chronic gout, multiple sites, without tophus (tophi)
CPT/HCPCS: 80053; 82607; 83036; 83540; 83550; 84443; 84550; 85025